=== PATIENT | male | born 1955 | race Caucasian/White ===

== ENCOUNTER 2020-06-29 07:35 | Day surgery (SDC) | payer MEDICARE, OTHER ==
[~2020-06-29] VITALS: Ht 179.1 cm; Wt 67.6 kg
[~2020-06-29 07:35] MED LIST: BAYER CHEWABLE81 MG PO; FISH OIL 1,0001 CA1 PO; GLUCOSAMINE & C1 CAP PO; MOBIC7.5 MG PO; PRILOSEC10 MG PO; VYTORIN 10-20 M1 TAB PO
[2020-06-29 08:05] LABS: HEMATOCRIT 48.6 % (42.0-54.0); HEMOGLOBIN 16.1 g/dL (13.5-17.5); MCHC 33.1 g/dL (31.0-37.0); MCV 90.7 fL (80.0-100.0); MEAN PLATELET VOLUME 9.9 fL (7.4-10.4); RBC 5.36 10x6/uL (4.20-6.10); RDW 13.5 % (11.5-14.5); WBC 4.4 10x3/uL (4.8-10.8)
[2020-06-29] MEDS ORDERED: ULTRAM50 MG (09:55)
[2020-06-29] MEDS ORDERED: SINGULAIR10 MG (09:55)
[2020-06-29] MEDS ORDERED: CELEBREX200 MG (09:56)
[2020-06-29] MEDS ORDERED: PROBIOTIC250 MG (09:56)
[2020-06-29] MEDS ORDERED: HYDROXYCHLOROQ200 MG (09:57)
[2020-06-29] MEDS ORDERED: ZETIA10 MG (09:57)
[2020-06-29 09:59] VITALS: BP 122/89; Ht 179.1 cm; Wt 67.6 kg
--- NOTE | 2020-06-29 16:50 | NUR ---
PT VOIDED 1700 DISCHARGE TEACHING TO PATIENT AND SPOUSE, VERBALIZED UNDERSTANDING. PIV REMOVED WITH CATHETER INTACT. HELPING PT TO GET DRESSED. 1710 PT DC'D BY THIS NURSE VIA WC TO POV WITH DRIVING. PT/ HAVE ALL BELONGINGS AND DC PACKET.
--- NOTE | 2020-07-01 10:33 | OP ---
PATIENT NAME: NATHALIE NICHOLS MEDICAL RECORD: [id number] :51 LOCATION:D.OPS ADMISSION DATE: SURGEON: FREDERIC NAJERA MD DATE OF OPERATION: 06/29/2020 PREOPERATIVE DIAGNOSES: 1. Intractable symptomatic hemorrhoids. 2. Third-degree internal hemorrhoidal prolapse of a single hemorrhoid. 3. Bleeding internal hemorrhoids. POSTOPERATIVE DIAGNOSES: 1. Intractable symptomatic hemorrhoids. 2. Third-degree internal hemorrhoidal prolapse of a single hemorrhoid. 3. Bleeding internal hemorrhoids. 4. A 6 mm raised lesion on a hemorrhoid at 3 o'clock with the patient in the lithotomy position. PROCEDURE: 1. Procedure for prolapse and hemorrhoids. 2. Excisional anal biopsy. SURGEON: Frederic Najera MD DESKTOP PUBLISHING OPERATOR: None. BLOOD LOSS: 25 cc. ANESTHESIA: General. COMPLICATIONS: None. The risks, possible complications, and alternatives of the procedure were explained to the patient. He elects to proceed. We discussed the pathophysiology of hemorrhoids as well as how they can be repaired. The discussion specifically included, but was not limited to bleeding requiring emergency reoperation, infection, as well as recurrent hemorrhoidal symptoms. OPERATIVE COURSE: The patient was conveyed to the operating room electively on 06/29/2020. General anesthesia was induced by the anesthesia staff. The patient was placed in the lithotomy position. The buttocks were taped laterally. Anus and perineum were sterilely prepped and draped. Well lubricated U-shaped anal retractors were placed within the anus and rectum. I noted no anal fissure. I noted no anal fistula. There was a raised lesion at the 3 o'clock position on an internal hemorrhoid. I excised this with a scalpel. Bleeding was controlled with electrocautery as well as with a single horizontal mattress 3-0 Vicryl suture. The PPH dilator retractor was then placed within the anus. The retractor was sutured to the surrounding anoderm with 2-0 silks. A mucosal pursestring suture of 2-0 Prolene was applied 1 cm cephalad to the clear retractor. The PPH stapling device was inserted with the anvil cephalad to the pursestring suture, which was then tightened and tied. Stapling device was then engaged. It was held in place for 3 minutes and then fired. It was then removed. There was an entire donut of rectal and internal hemorrhoidal tissue within the stapling device. Bleeding along the anastomotic staple line was controlled with [id number] 3-0 Vicryl. The retractor was removed. Gelfoam was applied within the anus and lower rectum. A combination OPERATIVE REPORT [id number] NATHALIE NICHOLS of Marcaine and steroids were used to infiltrate the perianal tissues. A topical anesthetic cream was applied to the external hemorrhoids. The patient was then extubated and conveyed to the postanesthesia care unit where he was in stable condition. I will see him in the office in 2 to 3 weeks. He is being dismissed home on an analgesic as well as Valium for anal muscle spasms and a stool softener. TRANSINT:[id number] Voice Confirmation ID: [id number] DOCUMENT ID: [id number] FREDERIC NAJERA MD at 1033 CC: [id number] DICTATION DATE: 06/30/20 170 NPS: 06/30/20 [id number] [facility] 06/29/20 [facility] [address] [place] [address]
== END 2020-06-29 17:10 | disposition home or self-care (01) ==
LOC: D.OPS 07:35
PROVIDERS: Anesthesiology; ATTEND Surgery
DX: K64.2 Third degree hemorrhoids (principal); K64.8 Other hemorrhoids; K40.90 Unilateral inguinal hernia, without obstruction or gangrene, not specified as recurrent; E78.5 Hyperlipidemia, unspecified; K21.9 Gastro-esophageal reflux disease without esophagitis